=== PATIENT | female | born 1970 | race Caucasian/White ===

== ENCOUNTER 2020-03-13 21:24 | Inpatient (IN) | payer OTHER, MEDICAID ==
[~2020-03-13] VITALS: Ht 167.6 cm; Wt 60.0 kg
--- NOTE | ~2020-03-13 | H ---
[address] [address] HISTORY AND PHYSICAL Name: MEENA VILLAGRAN Room: [address] IN .R.#: [id number] Admission: 03/14/20 Attend Phys: Santo Rascon Discharge: Date of : 66 Report #: [id number] THIS REPORT FOR: //name// cc: Rosie Weeks MD, K. Gay MD ~ THIS REPORT FOR: //name// For History and Physical please refer to the consultation note in the patient's medical record. By: 0644Medical Records Staff JUANIS /GLENNA
[~2020-03-13 21:24] MED LIST: AZITHROMYCIN 2250 MG PO; BENZONATATE200 MG PO; DEPAKENE250 MG PO; DEPAKOTE ER500 MG PO; HYDROCODONE-APA1 TA1 PO; LEXAPRO 10 MG T10 MG PO; MUCINEX TA600 MG/TA2 PO; MUCINEX1200 MG PO; OXCARBAZEPINE600 MG PO; PREDNISONE 20 M20 MG PO; TOPAMAX 100 MG100 MG PO; TRAZODONE 50 MG50 MG OR; VENTOLIN HFA 1818 GM INH; ZONEGRAN100 MG PO
[2020-03-13 21:33] VITALS: BP 183/109
[2020-03-13] MEDS ORDERED: CYCLOBENZAPRINE10 MG PO (21:45)
[2020-03-13 22:46] LABS: POTASSIUM 3.6 mmol/L (3.5-5.1)
[2020-03-13 22:47] LABS: CALCIUM 9.5 mg/dL (8.5-10.1); CREATININE 1.7 mg/dL (0.6-1.3)
[2020-03-14 00:05] LABS: HEMATOCRIT 54.9 % (37.0-47.0); HEMOGLOBIN 18.5 gm/dL (12.0-15.0); MCH 31.7 pg (26.0-34.0); MCHC 33.7 g/dL (28.0-37.0); MCV 94.1 fL (80.0-100.0); MPV 8.2 fl. (7.2-11.1); NUCLEATED RBCS 0 /100WBC; PLATELET COUNT* 377 thou/uL (150-400); RBC 5.83 mil/uL (4.20-5.00); RDW-CV 13.6 % (10.5-14.5)
[2020-03-14 01:07] LABS: CALCIUM 8.9 mg/dL (8.5-10.1); CREATININE 1.4 mg/dL (0.6-1.3); POTASSIUM 3.2 mmol/L (3.5-5.1)
[2020-03-14 01:11] LABS: URINE BILIRUBIN NEGATIVE (Negative); URINE BLOOD NEGATIVE (Negative); URINE CLARITY CLEAR; URINE COLOR YELLOW; URINE GLUCOSE-RANDOM NEGATIVE (Negative); URINE KETONES NEGATIVE (Negative); URINE LEUKOCYTES-REFLEX NEGATIVE (Negative); URINE NITRITE-REFLEX NEGATIVE (Negative); URINE PROTEIN NEGATIVE (Negative); URINE SPECIFIC GRAVITY >= 1.030 (1.005-1.030); URINE UROBILINOGEN 0.2 E.U./dl (0.2-1.0)
[2020-03-14 01:11] LABS: ALBUMIN 3.1 g/dL (3.4-5.0); TOTAL BILIRUBIN 0.5 mg/dL (<0.1-1.0)
[2020-03-14 01:14] LABS: APTT 27.8 Seconds (25.0-31.3); PROTIME 10.8 Seconds (9.20-11.50)
[2020-03-14 01:36] LABS: WBC 42.2 thou/uL (4.0-11.0)
[2020-03-14 01:40] LABS: ABSOLUTE LYMPHOCYTES 3.8 thou/uL (0.8-5.3); ABSOLUTE MONOCYTES 1.3 thou/uL (0.0-1.2); ABSOLUTE NEUTROPHILS 37.1 thou/uL (1.6-8.1)
[2020-03-14 01:41] LABS: PLATELET ESTIMATE ADEQUATE
[2020-03-14 05:03] VITALS: BP 160/72
[2020-03-14 05:25] VITALS: BP 139/89
[2020-03-14 07:20] VITALS: BP 150/96
[2020-03-14 07:27] LABS: HEMATOCRIT 44.7 % (37.0-47.0); MCH 31.2 pg (26.0-34.0); MCHC 33.9 g/dL (28.0-37.0); MCV 92.1 fL (80.0-100.0); MPV 8.1 fl. (7.2-11.1); RBC 4.85 mil/uL (4.20-5.00); RDW-CV 13.9 % (10.5-14.5); WBC 31.6 thou/uL (4.0-11.0)
[2020-03-14 07:29] LABS: HEMOGLOBIN 15.1 gm/dL (12.0-15.0)
[2020-03-14 07:41] LABS: ALBUMIN 2.8 g/dL (3.4-5.0); CALCIUM 8.2 mg/dL (8.5-10.1); CREATININE 1.2 mg/dL (0.6-1.3); MAGNESIUM 2.2 mg/dL (1.8-2.4); PHOSPHORUS* 3.9 mg/dL (2.5-4.9); TOTAL BILIRUBIN 0.6 mg/dL (<0.1-1.0); TOTAL PROTEIN 6.4 g/dL (6.4-8.2)
--- NOTE | 2020-03-14 15:40 | EKG ---
[place] [address] ELECTROCARDIOGRAM REPORT Name: MEENA VILLAGRAN Room: [address] ADM IN M.R.#: [id number] Admission: 03/14/20 Attend Phys: Sonny Reis Discharge: Date of : 66 Date of Service: 03/14/20 0235 Report #: [id number] THIS REPORT FOR: //name// [facility] ED Test Date: 2020-03-14 Test Time: 02:35:48 Pat Name: MEENA VILLAGRAN Department: Room: [address] Gender: F Cardiac Catheterization Technologist: GAUDENCIO : 1970 Requested By: Misa Edouard Order Number: [id number] MD: Marlon Reese Measurements Intervals [place] Rate: 100 P: 77 WI: 109 QRS: -38 QRSD: 103 T: 111 QT: 387 QTc: 500 Interpretive Statements Sinus tachycardia with a short WI interval and a suggestion of a delta wave Inferior infarct, old possible Posterior infarct possible Abnrm T, consider ischemia, anterolateral lds No previous ECG available for comparison Electronically Signed On 03-14-2020 15:39:59 CDT by Marlon Reese [email or web address] <ELECTRONICALLY SIGNED> By: Marlon Reese MD, [facility] 03/14/20 1539 0235 0235 Marlon Reese MD, FAC /EPI
[2020-03-15] VITALS (7 sets, daily range): BP systolic 124–159; BP diastolic 76–94
[2020-03-15 03:55] LABS: HEMATOCRIT 38.5 % (37.0-47.0); HEMOGLOBIN 13.2 gm/dL (12.0-15.0); MCH 31.5 pg (26.0-34.0); MCHC 34.2 g/dL (28.0-37.0); MCV 92.3 fL (80.0-100.0); MPV 7.9 fl. (7.2-11.1); RBC 4.18 mil/uL (4.20-5.00); RDW-CV 13.6 % (10.5-14.5)
[2020-03-15 04:12] LABS: ALBUMIN 2.5 g/dL (3.4-5.0); CALCIUM 8.4 mg/dL (8.5-10.1); CREATININE 0.9 mg/dL (0.6-1.3); MAGNESIUM 2.1 mg/dL (1.8-2.4); PHOSPHORUS* 2.6 mg/dL (2.5-4.9); TOTAL BILIRUBIN 0.4 mg/dL (<0.1-1.0); TOTAL PROTEIN 6.1 g/dL (6.4-8.2)
[2020-03-16] VITALS: BP 159/94
[2020-03-16 03:00] VITALS: BP 150/91
[2020-03-16 04:46] LABS: HEMATOCRIT 41.9 % (37.0-47.0); HEMOGLOBIN 14.5 gm/dL (12.0-15.0); MCH 32.3 pg (26.0-34.0); MCHC 34.5 g/dL (28.0-37.0); MCV 93.5 fL (80.0-100.0); MPV 7.6 fl. (7.2-11.1); RBC 4.48 mil/uL (4.20-5.00); RDW-CV 13.7 % (10.5-14.5); WBC 15.9 thou/uL (4.0-11.0)
[2020-03-16 04:51] LABS: ALBUMIN 2.2 g/dL (3.4-5.0); CREATININE 0.8 mg/dL (0.6-1.3); MAGNESIUM 2.1 mg/dL (1.8-2.4); PHOSPHORUS* 3.1 mg/dL (2.5-4.9); POTASSIUM 4.5 mmol/L (3.5-5.1); TOTAL BILIRUBIN 0.4 mg/dL (<0.1-1.0); TOTAL PROTEIN 5.8 g/dL (6.4-8.2)
[2020-03-16 07:30] VITALS: BP 159/100
[2020-03-16 12:35] VITALS: BP 152/92
--- NOTE | 2020-03-16 13:45 | 2DMMODE ---
[place] [address] 2 D/M-MODE ECHOCARDIOGRAM Name: MEENA VILLAGRAN Room: [address] ADM IN M.R.#: [id number] Admission: 03/14/20 Attend Phys: Sonny Reis Discharge: Date of : 66 Date of Service: 03/16/20 1344 Report #: [id number] THIS REPORT FOR: cc: Rosie Weeks MD, K. Gay MD Holkins,Marlon Flood MD [facility] ~ APPROVED REPORT Study performed: 03/16/2020 09:15:26 EXAM: Comprehensive 2D, Doppler, and color-flow Echocardiogram Patient Location: In-Patient BSA: 1.66 HR: 94 bpm BP: 150/91 mmHg Other Information Study Quality: Good Indications Ischemic Bowel, Abdominal Pain with Nausea and Vomiting 2D Dimensions IVSd: 12.02 (7-11mm) LVOT Diam: 18.06 (18-24mm) LVDd: 36.06 mm PWd: 10.64 (7-11mm) Ascending Ao: 29.53 (22-36mm) LVDs: 24.14 (25-40mm) Aortic Root: 33.30 mm Volumes Left Atrial Volume (Systole) LA ESV Index: 11.00 mL/m2 Aortic Valve AoV Peak Romain.: 1.47 m/s AO Peak Gr.: 8.60 mmHg LVOT Max P.69 mmHg AO Mean Gr.: 5.06 mmHg LVOT Mean P.30 mmHg LVOT Max V: 1.29 m/s AO V2 VTI: 25.79 cm LVOT Mean V: 0.83 m/s COLT (VTI): 2.21 cm2 LVOT V1 VTI: 22.28 cm Mitral Valve E/A Ratio: 0.73 [place] [address] 2 D/M-MODE ECHOCARDIOGRAM Name: MEENA VILLAGRAN Room: [address] IN .R.#: [id number] Admission: 03/14/20 Attend Phys: Sonny Reis Discharge: Date of : 66 Date of Service: 03/16/20 1344 Report #: [id number] MV Decel. Time: 252.78 ms MV E Max Romain.: 0.48 m/s MV PHT: 73.31 ms MVA (PHT): 3.00 cm2 TDI E/Lateral E': 4.36 E/Medial E': 6.86 Medial E' Romain.: 0.07 m/s Lateral E' Romain.: 0.11 m/s Pulmonary Valve PV Peak Romain.: 0.93 m/s PV Peak Gr.: 3.45 mmHg Tricuspid Valve RAP Estimate: 5.00 mmHg TR Peak Gr.: 7.07 mmHg RVSP: 12.07 mmHg PA Pressure: 12.07 mmHg Left Ventricle The left ventricle is normal size. There is normal LV segmental wall motion. There is normal left ventricular wall thickness. Left ventricular systolic function is normal. The left ventricular ejection fraction is within the normal range. LVEF is 65-70%. Grade I - abnormal relaxation pattern. Right Ventricle The right ventricle is normal size. The right ventricular systolic function is normal. Atria The left atrium size is normal. The right atrium size is normal. Aortic Valve The aortic valve is normal in structure. No aortic regurgitation is present. There is no aortic valvular stenosis. Mitral Valve The mitral valve is normal in structure. Trace mitral regurgitation. No evidence of mitral valve stenosis. Tricuspid Valve The tricuspid valve is normal in structure. There is no tricuspid valve regurgitation noted. [place] [address] 2 D/M-MODE ECHOCARDIOGRAM Name: MEENA VILLAGRAN Room: [address] IN ..#: [id number] Admission: 03/14/20 Attend Phys: Sonny Reis Discharge: Date of : 66 Date of Service: 03/16/20 1344 Report #: [id number] The pulmonary valve is normal in structure. There is no pulmonic valvular regurgitation. Great Vessels The aortic root is normal in size. IVC is normal in size and collapses >50% with inspiration. Pericardium There is no pericardial effusion. <Conclusion> The left ventricle is normal size. There is normal left ventricular wall thickness. Left ventricular systolic function is normal. The left ventricular ejection fraction is within the normal range. LVEF is 65-70%. Grade I - abnormal relaxation pattern. The right ventricle is normal size. The left atrium size is normal. The aortic valve is normal in structure. The mitral valve is normal in structure. The tricuspid valve is normal in structure. IVC is normal in size and collapses >50% with inspiration. There is no pericardial effusion. There is normal LV segmental wall motion. <ELECTRONICALLY SIGNED> By: Marlon Reese MD, FACC 03/16/20 1344 1344 1344 Marlon Reese MD, FACC /INF
--- NOTE | 2020-03-16 15:08 | PATH ---
[address] [address] PATHOLOGY RPT PROCEDURE Name: MEENA JHAVERI Room: [address] IN M.R.#: [id number] Admission: 03/14/20 Date of : 66 Discharge: Report #: [id number] Path Case #: [id number] [facility] Accession Number: [id number] . 01 Material submitted: . sigmoid colon - BIOPSY OF DISTAL SIGMOID COLON ULCERATION. Modifiers: distal . 01 Clinical history: . Colonic obstruction . 02 Diagnosis: "Biopsy of distal sigmoid colon ulceration", biopsy: - Colonic mucosa with diffuse acute colitis, necroinflammatory debris/ulceration and focal gland atrophy; no dysplasia seen. (See comment) . (CLW:dimas; 03/16/2020) S 03/16/2020 1105 Local . 02 Comment: The histologic findings and pattern of inflammation are suggestive of ischemic colitis. Infectious colitis is also a diagnostic possibility. No granulomas are identified. Clinical and endoscopic correlation is recommended. (CLW:dimas; 03/16/20) . 02 Electronically signed: . Ashley Jonas MD, Pathologist NPI- [id number] . 01 Gross description: . The specimen is received in formalin, labeled "Meena Jhaveri, biopsy of distal sigmoid colon ulceration". Received is a segment of pale lopez soft tissue measuring 0.3 cm in maximum dimensions. The specimen is submitted entirely in cassette A1. (CAA; 03/15/2020) QAC/QAC 03/15/2020 1628 Local . 02 Pathologist provided ICD-10: K52.9, K63.3, K63.89 . 02 CPT . 035399 Specimen Comment: A courtesy copy of this report has been sent to [phone] Specimen Comment: Report sent to ,DR VILLARREAL / DR GRAFF Performed at: 01 [place] [address] PATHOLOGY RPT PROCEDURE Name: MEENA JHAVERI Room: [address] IN [facility].#: [id number] Admission: 03/14/20 Date of : 66 Discharge: Report #: [id number] Path Case #: [id number] [address] [facility] [address], [place], [place] [id number] MD Tani Lu MD Phone: [phone] Performed at: 02 [facility] [address], [place], [place] [id number] MD Yusuf Graham MD Phone: [phone]
[2020-03-16 16:53] VITALS: BP 170/97
[2020-03-16 20:00] VITALS: BP 153/77
[2020-03-17] VITALS: BP 161/102
[2020-03-17 04:00] VITALS: BP 179/101
[2020-03-17 05:00] LABS: HEMATOCRIT 38.2 % (37.0-47.0); HEMOGLOBIN 12.9 gm/dL (12.0-15.0); MCH 31.6 pg (26.0-34.0); MCHC 33.6 g/dL (28.0-37.0); MCV 93.8 fL (80.0-100.0); MPV 8.1 fl. (7.2-11.1); RBC 4.07 mil/uL (4.20-5.00); RDW-CV 13.5 % (10.5-14.5)
[2020-03-17 05:14] LABS: CREATININE 0.7 mg/dL (0.6-1.3); MAGNESIUM 1.7 mg/dL (1.8-2.4); PHOSPHORUS* 1.9 mg/dL (2.5-4.9); POTASSIUM 3.6 mmol/L (3.5-5.1)
[2020-03-17 08:00] VITALS: BP 144/86
[2020-03-17] MEDS ORDERED: PRINIVIL10 MG PO (09:23)
[2020-03-17 12:00] VITALS: BP 147/87
[2020-03-17 16:00] VITALS: BP 167/91
[2020-03-17 20:00] VITALS: BP 194/102
[2020-03-18] VITALS (9 sets, daily range): BP systolic 126–170; BP diastolic 81–108
[2020-03-18 05:12] LABS: ALBUMIN 2.2 g/dL (3.4-5.0); CALCIUM 8.1 mg/dL (8.5-10.1); CREATININE 0.5 mg/dL (0.6-1.3); MAGNESIUM 1.5 mg/dL (1.8-2.4); PHOSPHORUS* 2.7 mg/dL (2.5-4.9); POTASSIUM 3.6 mmol/L (3.5-5.1); TOTAL BILIRUBIN 0.4 mg/dL (<0.1-1.0)
[2020-03-18 07:13] LABS: HEMATOCRIT 38.3 % (37.0-47.0); MCH 31.5 pg (26.0-34.0); MCV 92.5 fL (80.0-100.0); NUCLEATED RBCS 0 /100WBC; PLATELET COUNT* 384 thou/uL (150-400); RBC 4.14 mil/uL (4.20-5.00); RDW-CV 13.6 % (10.5-14.5); WBC 17.3 thou/uL (4.0-11.0)
[2020-03-18 08:11] LABS: ABSOLUTE EOSINOPHILS 0.2 thou/uL (0.0-0.7); ABSOLUTE LYMPHOCYTES 5.5 thou/uL (0.8-5.3); ABSOLUTE NEUTROPHILS 10.6 thou/uL (1.6-8.1); METAMYELOCYTES 3 %; PLATELET ESTIMATE ADEQUATE
--- NOTE | 2020-03-18 18:06 | PATH ---
[address] [address] PATHOLOGY RPT PROCEDURE Name: STARALYMEENA LUIS F Room: [address] IN M.R.#: [id number] Admission: 03/14/20 Date of : 66 Discharge: Report #: [id number] Path Case #: [id number] [facility] Accession Number: [id number] . 01 Material submitted: . PART A: colon - LEFT COLON. Modifiers: left PART B: lymph node - MESENTERIC NODE . 01 Clinical history: . Ischemic colitis; colonic obstruction . 02 Diagnosis: A. "Left colon", resection: - Colonic mucosa, submucosa, and muscular wall with patchy areas of marked acute colitis/ulcer with acute inflammation extending through the mucosa and submucosa into the muscularis propria with pseudomembrane formation; surgical margins with mild acute inflammation within the submucosal tissue and mild acute serositis. - Lymph nodes (6) with mild hyperplasia. (6 nodes) - Omentum, 13.0 cm, with vascular congestion. . B. Tissue submitted as "mesenteric node", excisional biopsy: - Vascularized fibrous connective tissue with fibroblastic proliferation, mild acute and chronic inflammation and reactive mesothelium; no lymph node identified. (CLW:dimas; 03/18/2020) S 03/18/2020 1147 Local . 02 Comment: The patient has a history of "colonic mucosa with diffuse acute colitis, necro-inflammatory debris/ulceration and focal gland atrophy", a previous biopsy of distal sigmoid colon ulceration ([id number]). The findings are consistent with the clinical impression of marked ischemic colitis. No dysplasia is seen. Clinical correlation is recommended. (CLW:dimas 03/18/2020) . 02 Electronically signed: . Ashley Jonas MD, Pathologist NPI- [id number] . 01 Gross description: . A. The specimen is received in formalin, labeled "Meena Jhaveri, left colon". Received is an unoriented segment of colon measuring 49.8 cm in length and ranges in diameter from 2.5 to 4.8 cm. Both margins are stapled closed. The serosal surface is spencer-lopez to dusky pink-spencer in appearance. The attached pericolic fat measures up to 3.0 cm in thickness. Omentum is identified measuring 13.0 x 2.5 x 2.5 cm. The specimen is opened along the antimesenteric line to [place] [address] PATHOLOGY RPT PROCEDURE Name: MEENA JHAVERI Room: [address] IN [facility].#: [id number] Admission: 03/14/20 Date of : 66 Discharge: Report #: [id number] Path Case #: [id number] mucosa with minimal architectural folds near one margin. The remainder of the colonic mucosa is dusky spencer-brown and predominately flattened and roughened in appearance. No distinct nodules or lesions are noted grossly. Sectioning through the attached mesenteric fat reveals five readily identifiable lymph nodes ranging in size from 0.3 to 0.5 cm. Sectioning through the omentum reveals yellow-lopez cut surfaces with no grossly distinct nodules or lesions. The specimen is committed representatively as follows: . A1-A2 both margins A3-A4 commissary representative cross-sections of mucosa A5 intact lymph nodes A6 commissary representative section of omentum. . B. The specimen is received in formalin, labeled "Meena Jhaveri, mesenteric nodule". The site is verified on the problem specimen form as, "mesenteric node". Received is a segment of pale lopez tissue measuring 0.6 cm in maximum dimensions. The specimen is submitted intact in cassette B1. (CAA; 03/17/2020) QA/QAC 03/18/2020 1712 Local . 02 Pathologist provided ICD-10: K52.9, K65.8, R59.9 . 02 CPT . 085390, 471825, 764928 Specimen Comment: A courtesy copy of this report has been sent to [phone] Specimen Comment: 0012 Specimen Comment: Report sent to / DR GERMAN Performed at: 01 [facility] [address], [place], [place] [id number] MD Tani Lu MD Phone: [phone] Performed at: 02 [facility] [address], [place], [place] [id number] MD Yusuf Graham MD Phone: [phone]
[2020-03-19] VITALS: BP 140/97
[2020-03-19 04:00] VITALS: BP 156/90
[2020-03-19 04:54] LABS: ABSOLUTE BASOPHILS 0.2 thou/uL (0.0-0.2); ABSOLUTE EOSINOPHILS 0.5 thou/uL (0.0-0.7); ABSOLUTE LYMPHOCYTES 4.4 thou/uL (0.8-5.3); ABSOLUTE MONOCYTES 1.6 thou/uL (0.0-1.2); BASOPHILS 0.7 %; EOSINOPHILS 2.3 %; HEMATOCRIT 37.7 % (37.0-47.0); HEMOGLOBIN 12.9 gm/dL (12.0-15.0); LYMPHOCYTES 20.2 %; MCH 31.6 pg (26.0-34.0); MCHC 34.2 g/dL (28.0-37.0); MCV 92.4 fL (80.0-100.0); MONOCYTES 7.4 %; MPV 7.7 fl. (7.2-11.1); NUCLEATED RBCS 0 /100WBC; PLATELET COUNT* 455 thou/uL (150-400); POLYS 69.4 %; RBC 4.08 mil/uL (4.20-5.00); RDW-CV 13.6 % (10.5-14.5); WBC 21.7 thou/uL (4.0-11.0)
[2020-03-19 05:14] LABS: CALCIUM 8.4 mg/dL (8.5-10.1); CREATININE 0.6 mg/dL (0.6-1.3); MAGNESIUM 1.6 mg/dL (1.8-2.4); POTASSIUM 3.5 mmol/L (3.5-5.1)
[2020-03-19 07:05] LABS: URINE BILIRUBIN NEGATIVE (Negative); URINE BLOOD NEGATIVE (Negative); URINE CLARITY CLEAR; URINE COLOR YELLOW; URINE GLUCOSE-RANDOM NEGATIVE (Negative); URINE LEUKOCYTES NEGATIVE (Negative); URINE NITRITE NEGATIVE (Negative); URINE PROTEIN NEGATIVE (Negative); URINE SPECIFIC GRAVITY 1.015 (1.005-1.030); URINE UROBILINOGEN 0.2 E.U./dl (0.2-1.0)
[2020-03-19 07:08] LABS: URINE KETONES 3+ (Negative)
[2020-03-19 08:00] VITALS: BP 139/87
[2020-03-19 12:23] VITALS: BP 133/84
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
[2020-03-19 16:51] VITALS: BP 121/76
[2020-03-19 20:00] VITALS: BP 133/74
[2020-03-20] VITALS: BP 150/91
[2020-03-20 03:44] VITALS: BP 127/88
[2020-03-20 04:44] LABS: HEMATOCRIT 37.2 % (37.0-47.0); HEMOGLOBIN 12.9 gm/dL (12.0-15.0); MCH 31.5 pg (26.0-34.0); MCHC 34.6 g/dL (28.0-37.0); MCV 90.8 fL (80.0-100.0); MPV 7.3 fl. (7.2-11.1); RBC 4.1 mil/uL (4.20-5.00); RDW-CV 13.7 % (10.5-14.5); WBC 17.3 thou/uL (4.0-11.0)
[2020-03-20 05:11] LABS: CALCIUM 8.7 mg/dL (8.5-10.1); CREATININE 0.7 mg/dL (0.6-1.3); POTASSIUM 3.7 mmol/L (3.5-5.1)
[2020-03-20 07:40] VITALS: BP 115/77
[2020-03-20 12:30] VITALS: BP 117/77
[2020-03-20 16:24] VITALS: BP 147/82
[2020-03-20 20:00] VITALS: BP 143/81
[2020-03-21] VITALS: BP 138/81
[2020-03-21 04:00] VITALS: BP 119/81
[2020-03-21 04:44] LABS: HEMATOCRIT 35.4 % (37.0-47.0); HEMOGLOBIN 12.2 gm/dL (12.0-15.0); MCH 31.5 pg (26.0-34.0); MCHC 34.4 g/dL (28.0-37.0); MCV 91.7 fL (80.0-100.0); MPV 7.4 fl. (7.2-11.1); RBC 3.86 mil/uL (4.20-5.00); RDW-CV 13.8 % (10.5-14.5); WBC 15.9 thou/uL (4.0-11.0)
[2020-03-21 04:57] LABS: CALCIUM 8.5 mg/dL (8.5-10.1); CREATININE 0.6 mg/dL (0.6-1.3); MAGNESIUM 1.5 mg/dL (1.8-2.4); PHOSPHORUS* 4.3 mg/dL (2.5-4.9); POTASSIUM 3.2 mmol/L (3.5-5.1)
[2020-03-21 07:30] VITALS: BP 128/70
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
[2020-03-21 12:14] VITALS: BP 121/80
[2020-03-21 16:08] VITALS: BP 154/82
[2020-03-21 20:15] VITALS: BP 142/80
[2020-03-22] VITALS: BP 120/84
[2020-03-22 08:00] VITALS: BP 123/71
[2020-03-22 09:12] VITALS: BP 146/88
[2020-03-22 09:14] VITALS: BP 146/88
[2020-03-22] MEDS ORDERED: OXYCODONE HCL 55 MG PO (10:29)
[2020-03-22] MEDS ORDERED: TYLENOL325 MG PO (10:30)
[2020-03-22] MEDS ORDERED: COLACE100 MG PO (10:31)
[2020-03-22 11:00] VITALS: BP 146/88
[2020-03-23 14:07] LABS: RENIN 0.947 ng/mL/hr (0.167-5.380)
[2020-03-26 16:06] LABS: METANEPHRINE-PL 351.6 pg/mL (0.0-88.0)
== END 2020-03-22 12:15 | disposition home or self-care (01) | DRG 329 ==
LOC: M.SUR 21:24 → M.ERS 21:24 → M.TBA-ER 03-14 01:19 → M.ERS 03-14 01:19 → M.2W 03-14 03:59 → M.ORTHSURG 03-14 03:59 → M.TBA-ER 03-14 03:59 → M.ORTHSURG 03-14 05:13 → M.2W 03-15 21:16
PROVIDERS: Internal Medicine Gastroenterology; Personal Emergency Response Attendant; Surgery; ADMIT Surgery; ATTEND Surgery
PROC: 0DBN8ZX Excision of Sigmoid Colon, Via Natural or Artificial Opening Endoscopic, Diagnostic (ICD-10-PCS; principal; 2020-03-14)
PROC: 0DJ08ZZ Inspection of Upper Intestinal Tract, Via Natural or Artificial Opening Endoscopic (ICD-10-PCS; principal; 2020-03-14)
PROC: 0DNU0ZZ Release Omentum, Open Approach (ICD-10-PCS; 2020-03-15)
PROC: 0D1L0Z4 Bypass Transverse Colon to Cutaneous, Open Approach (ICD-10-PCS; 2020-03-15)
PROC: 0DQL0ZZ Repair Transverse Colon, Open Approach (ICD-10-PCS; 2020-03-15)
PROC: 0DTG0ZZ Resection of Left Large Intestine, Open Approach (ICD-10-PCS; 2020-03-15)
DX: K55.9 Vascular disorder of intestine, unspecified (principal); R65.11 Systemic inflammatory response syndrome (SIRS) of non-infectious origin with acute organ dysfunction; K56.609 Unspecified intestinal obstruction, unspecified as to partial versus complete obstruction; E87.1 Hypo-osmolality and hyponatremia; N17.9 Acute kidney failure, unspecified; K50.90 Crohn's disease, unspecified, without complications; F17.210 Nicotine dependence, cigarettes, uncomplicated; F32.9 Major depressive disorder, single episode, unspecified; K59.00 Constipation, unspecified; D72.829 Elevated white blood cell count, unspecified; E87.6 Hypokalemia; E86.0 Dehydration; K80.50 Calculus of bile duct without cholangitis or cholecystitis without obstruction; K52.9 Noninfective gastroenteritis and colitis, unspecified; K29.70 Gastritis, unspecified, without bleeding; K29.80 Duodenitis without bleeding; Z79.891 Long term (current) use of opiate analgesic; Z87.820 Personal history of traumatic brain injury; Z88.8 Allergy status to other drugs, medicaments and biological substances; Z79.899 Other long term (current) drug therapy; K21.0 Gastro-esophageal reflux disease with esophagitis

== ENCOUNTER 2020-04-25 08:10 | Emergency (ER) | payer OTHER, MEDICAID ==
[~2020-04-25] VITALS: Ht 165.1 cm; Wt 53.1 kg
[~2020-04-25 08:10] MED LIST changes: +COLACE100 MG PO; +CYCLOBENZAPRINE10 MG PO; +OXYCODONE HCL 55 MG PO; +PRINIVIL10 MG PO; +TYLENOL325 MG PO
[2020-04-25] MEDS ORDERED: ZOFRAN4 MG PO (08:28)
[2020-04-25] MEDS ORDERED: PROTONIX40 M1 PO (08:29)
[2020-04-25 09:14] LABS: ABSOLUTE BASOPHILS 0.1 thou/uL (0.0-0.2); ABSOLUTE EOSINOPHILS 0.1 thou/uL (0.0-0.7); ABSOLUTE LYMPHOCYTES 3.3 thou/uL (0.8-5.3); ABSOLUTE MONOCYTES 0.6 thou/uL (0.0-1.2); BASOPHILS 0.7 %; EOSINOPHILS 1.2 %; HEMATOCRIT 38.3 % (37.0-47.0); HEMOGLOBIN 13.1 gm/dL (12.0-15.0); LYMPHOCYTES 27.1 %; MCH 30.8 pg (26.0-34.0); MCHC 34.3 g/dL (28.0-37.0); MONOCYTES 4.8 %; MPV 6.9 fl. (7.2-11.1); NUCLEATED RBCS 0 /100WBC; PLATELET COUNT* 397 thou/uL (150-400); POLYS 66.2 %; RBC 4.26 mil/uL (4.20-5.00); RDW-CV 13.6 % (10.5-14.5); WBC 12.1 thou/uL (4.0-11.0)
[2020-04-25 09:30] LABS: CALCIUM 8.9 mg/dL (8.5-10.1); CREATININE 0.9 mg/dL (0.6-1.3); POTASSIUM 3.4 mmol/L (3.5-5.1)
[2020-04-25 09:35] LABS: ALBUMIN 3.8 g/dL (3.4-5.0); TOTAL BILIRUBIN 0.4 mg/dL (<0.1-1.0); TOTAL PROTEIN 7.5 g/dL (6.4-8.2)
[2020-04-25 11:30] VITALS: BP 140/80
== END 2020-04-25 11:31 | disposition home or self-care (01) ==
LOC: M.ERS 08:10
PROVIDERS: Personal Emergency Response Attendant
DX: K21.9 Gastro-esophageal reflux disease without esophagitis (principal); F17.210 Nicotine dependence, cigarettes, uncomplicated; Z88.8 Allergy status to other drugs, medicaments and biological substances

== ENCOUNTER → 2020-11-10 | Outpatient (CLI) | payer OTHER, MEDICAID ==
[~2020-11-10] MED LIST changes: +PROTONIX40 M1 PO; +ZOFRAN4 MG PO
== END ==
LOC: M.LAB 11-09 10:00 → M.CT 11-09 10:00 → M.LAB 08:30
PROVIDERS: ATTEND Surgery
DX: R19.5 Other fecal abnormalities (principal); E89.6 Postprocedural adrenocortical (-medullary) hypofunction

== ENCOUNTER → 2021-11-15 | Outpatient (CLI) | payer OTHER, MEDICAID ==
[2021-11-15 11:31] LABS: CREATININE 0.8 mg/dL (0.6-1.3)
== END ==
LOC: M.LAB 11-14 10:00 → M.CT 11-14 11:00 → M.LAB 11-14 12:00 → M.CT 11-14 13:00 → M.LAB 10:47
PROVIDERS: ATTEND Surgery
DX: K63.89 Other specified diseases of intestine (principal); I70.0 Atherosclerosis of aorta; E89.6 Postprocedural adrenocortical (-medullary) hypofunction; Z90.49 Acquired absence of other specified parts of digestive tract